=== PATIENT | male | born 1965 | race Two or more races ===

== ENCOUNTER 2021-03-22 13:24 | Emergency (ER) | payer OTHER ==
[2021-03-22 14:55] LABS: BASOPHIL 0.4 % (0-2); EOSINOPHIL 5.5 % (0-5); HCT 45.1 % (42.0-52.0); HGB 15.2 g/dl (13.2-18.0); LYMPHOCYTE 30.7 % (15-48); MCH 29.9 pg (25.0-31.0); MCHC 33.7 g/dL (32.0-36.0); MCV 88.6 fL (78.0-100.0); MONOCYTE 7.6 % (0-12); MPV 8.8 fL (6.0-9.5); NEUTROPHIL 55.4 % (41-80); NRBC 0; PLT 260 K/uL (150-400); RBC 5.09 M/uL (4.70-6.00); RDW 12.4 % (11.5-14.0); WBC 4.8 K/uL (4.0-10.5)
[2021-03-22 15:13] LABS: ALBUMIN 3.6 g/dL (3.4-5.0); BILIRUBIN - TOTAL 0.6 mg/dL (0.2-1.0); BUN/CREAT RATIO (CALC) 9.7 RATIO; C-REACTIVE PROTEIN 0.7 mg/dL (<=0.90); CREATININE 1.13 mg/dL (0.67-1.17); GLOBULIN (CALCULATION) 4.4 g/dL; POTASSIUM 4.2 mmol/L (3.5-5.1)
[2021-03-22 15:20] LABS: PRO-BNP 20 pg/mL (<125)
== END 2021-03-22 15:30 | disposition left against medical advice (07) ==
LOC: FER 13:24
PROVIDERS: Emergency Medicine
DX: Z53.8 Procedure and treatment not carried out for other reasons (principal)
CPT/HCPCS: 36415; 71046; 80053; 83880; 84145; 84484; 85025; 85379; 86140